=== PATIENT | female | born 1955 | race African-American/Black ===

== ENCOUNTER → 2017-02-10 | Outpatient (CLI) | payer BC | END | disposition home or self-care (01) | LOC: LAB 08:27 | PROVIDERS: ATTEND General Practice | DX: I10 Essential (primary) hypertension (principal); E11.9 Type 2 diabetes mellitus without complications ==

== ENCOUNTER → 2017-03-31 | Outpatient (CLI) | payer BC | END | disposition home or self-care (01) | LOC: LAB.O 08:29 | PROVIDERS: ATTEND Student in an Organized Health Care Education/Training Program | DX: N18.3 Chronic kidney disease, stage 3 (moderate) (principal); E55.9 Vitamin D deficiency, unspecified; N25.81 Secondary hyperparathyroidism of renal origin; D63.1 Anemia in chronic kidney disease ==

== ENCOUNTER → 2017-04-06 | Outpatient (CLI) | payer BC ==
--- NOTE | 2017-04-06 15:08 | RAD ---
EXAM DESCRIPTION: Chest,2 Views CLINICAL HISTORY: SURGICAL CLEARANCE COMPARISON: February 16, 2016 TECHNIQUE: PA/lateral FINDINGS: The lungs are well expanded and clear. No infiltrates or effusions or masses are noted. The heart is normal in size and shape with no evidence of vascular congestion. Aortic arch and descending aorta is moderately tortuous. The patricia and mediastinum demonstrate normal contours. The bony spine and chest wall is normal for age in appearance. IMPRESSION: Normal chest, two views Electronically signed by: Braulio Carlin MD 04/06/2017 3:06 PM CDT
== END | disposition home or self-care (01) ==
LOC: RESP 14:08
PROVIDERS: ATTEND Orthopaedic Surgery
DX: Z01.818 Encounter for other preprocedural examination (principal)

== ENCOUNTER 2018-11-25 19:42 | Emergency (ER) | payer BC, MEDICARE ==
[2018-11-25] MEDS ORDERED: MORPHINE SULFATE INJ 10 MG/ML VIAL IV ONE (20:18)
[2018-11-25] MEDS ORDERED: ONDANSETRON INJ 4 MG/2 ML VIAL IV ONE (20:18)
--- NOTE | 2018-11-25 20:21 | ED.PDOC ---
History of Present Illness - General Chief Complaint: GI Problem Stated Complaint: back pain, vomiting Time Seen by Provider: 11/25/18 20:17 Source: patient, family Exam Limitations: no limitations - History of Present Illness Initial Comments: Patient presents with N/V since last night. She has had associated generalized abdominal pain since it started. Denies diarrhea. No similarly sick contacts. She had back surgery in 2014 and 2017 to "straighten it". She says that her back has been hurting worse recently, especially with the vomiting. She is not sure if she has had a fever. No other complaints. Timing/Duration: 24 hours Severity: mild Improving Factors: nothing Worsening Factors: nothing Associated Symptoms: other - as in HPI Allergies/Adverse Reactions: Allergies Flu Virus Vaccine Allergy (Verified 11/25/18 20:04) Penicillins Allergy (Verified 11/25/18 20:04) Tetracycline [From Achromycin V] Allergy (Verified 05/07/16 09:44) Unknown Home Medications: Ambulatory Orders Carvedilol 18.75 mg PO BID 03/05/16 Acetaminophen W/ Codeine [Tylenol W/ CODEINE #3] 1 ea PO Q6HRS PRN #20 11/25/18 Amlodipine Besylate 5 mg PO DAILY 11/25/18 Aspirin [Aspirin Adult Low Dose] 81 mg PO DAILY 11/25/18 Furosemide [Lasix] 20 mg PO DAILY 11/25/18 Lisinopril 40 mg PO DAILY 11/25/18 Ondansetron [Zofran Odt] 4 mg PO Q6HRS PRN 11/25/18 Promethazine Tab [Phenergan Tablet] 25 mg PO .Q4H PRN #10 tab 11/25/18 Spironolactone [Aldactone] 25 mg PO DAILY 11/25/18 Review of Systems - Review of Systems Constitutional: States: no symptoms reported EENTM: States: no symptoms reported Respiratory: States: no symptoms reported Gastrointestinal/Abdominal: States: see HPI Genitourinary: States: no symptoms reported Musculoskeletal: States: no symptoms reported Skin: States: no symptoms reported Neurological: States: no symptoms reported Endocrine: States: no symptoms reported Hematologic/Lymphatic: States: no symptoms reported Past Medical History (General) - Patient Medical History Hx Seizures: No Hx Stroke: No Hx Dementia: No Hx Asthma: No Hx of COPD: No Hx Cardiac Disorders: No Hx Congestive Heart Failure: Yes Hx Pacemaker: No Hx Hypertension: Yes Hx Thyroid Disease: No Hx Diabetes: No Hx Gastroesophageal Reflux: No Hx Renal Disease: No Hx Cancer: No Hx of HIV: No Hx Hepatitis C: No Hx MRSA: No Surgical History: cholecystectomy, Hysterectomy - Vaccination History Hx Tetanus, Diphtheria Vaccination: No Hx Influenza Vaccination: No Hx Pneumococcal Vaccination: No - Social History Hx Tobacco Use: Yes Hx Alcohol Use: No Hx Substance Use: No Hx Substance Use Treatment: No Hx Depression: No - Female History Patient is a Female of Child Bearing Age (10 -59 yrs old): No Patient : No Family Medical History - Family History Mother Family History: No Known Living Status: Physical Exam - Physical Exam General Appearance: Alert Respiratory: lungs clear, normal breath sounds Cardiovascular/Chest: regular rate, rhythm Gastrointestinal/Abdominal: normal bowel sounds, non tender, soft Back Exam: normal inspection, no CVA tenderness Neurologic: no motor/sensory deficits, alert, normal mood/affect, oriented x 3 Skin Exam: normal color Lymphatic: no adenopathy Progress - Progress Progress: 11/25/18 22:25 Laboratory Tests 11/25/18 11/25/18 11/25/18 20:40 20:40 21:15 WBC 9.2 RBC 4.37 Hgb 13.0 Hct 38.2 MCV 87.4 MCH 29.7 MCHC 34.0 RDW 14.2 Plt Count 268 MPV 8.0 Absolute Neuts (auto) 8.20 H Absolute Lymphs (auto) 0.60 L Absolute Monos (auto) 0.30 Absolute Eos (auto) 0.20 Absolute Basos (auto) 0.00 Neutrophils % 88.7 H Lymphocytes % 6.2 L Monocytes % 2.9 Eosinophils % 1.8 Basophils % 0.4 Sodium 140 Potassium 3.8 Chloride 106 Carbon Dioxide 23 Anion Gap 14.8 BUN 19 H Creatinine 1.06 BUN/Creatinine Ratio 17.9 Random Glucose 172 H Serum Osmolality 285.7 Calcium 9.7 Total Bilirubin 0.6 AST 21 ALT 13 Alkaline Phosphatase 79 B-Natriuretic Peptide 497.0 H* Serum Total Protein 8.6 H Albumin 4.3 Globulin 4.3 H Albumin/Globulin Ratio 1.0 L Lipase 108 H Urine Color Yellow Urine Appearance Clear Urine pH 5.5 Ur Specific [place] >= 1.030 Urine Protein >=300 H Urine Glucose (UA) Negative Urine Ketones Trace Urine Blood Moderate H Urine Nitrite Negative Urine Bilirubin Negative Urine Urobilinogen 0.2 Ur Leukocyte Esterase Negative Urine RBC 0 Urine WBC 1-3 Ur Epithelial Cells 1-3 Urine Bacteria 1+ Patient's nausea resolved with zofran 4 mg IV x one and her back pain resolved with morphine 4 mg IV x one. There was no indication for a CT at this time. There was hematuria and the patient and daughter were asked to have her follow up in one to two weeks with their pcp to recheck the urine since the most common hematuria is transient. Patient was given RX for phenergan and Tylenol #3. Care instructions given. E.R. warnings given. Questions were elicited and ans wered. Patient voiced understanding and agreement with the plan. Departure - Departure Clinical Impression: Nausea & vomiting Disposition: Discharge to Home or Self Care Condition: Good Departure Forms: ED Discharge - Pt. Copy, Patient Portal Self Enrollment Instructions: Nausea and Vomiting, Adult (DC) Diet: other - increase oral fluids Activity: increase activity as tolerated Referrals: Joey Payne MD [Primary Care Provider] - 1-2 Weeks Prescriptions: Acetaminophen W/ Codeine [Tylenol W/ CODEINE #3] 1 ea PO Q6HRS PRN #20 PRN Reason: Pain Promethazine Tab [Phenergan Tablet] 25 mg PO .Q4H PRN #10 tab PRN Reason: Nausea/Vomiting Home Medications: Ambulatory Orders Carvedilol 18.75 mg PO BID 03/05/16 Acetaminophen W/ Codeine [Tylenol W/ CODEINE #3] 1 ea PO Q6HRS PRN #20 11/25/18 Amlodipine Besylate 5 mg PO DAILY 11/25/18 Aspirin [Aspirin Adult Low Dose] 81 mg PO DAILY 11/25/18 Furosemide [Lasix] 20 mg PO DAILY 11/25/18 Lisinopril 40 mg PO DAILY 11/25/18 Ondansetron [Zofran Odt] 4 mg PO Q6HRS PRN 11/25/18 Promethazine Tab [Phenergan Tablet] 25 mg PO .Q4H PRN #10 tab 11/25/18 Spironolactone [Aldactone] 25 mg PO DAILY 11/25/18 Additional Instructions: Return to the E.R. or to your regular doctor if the nausea and vomiting continues for more than 48 hours without the development of diarrhea. Return for increasing abdominal pain. You had blood in your urine today. See your regular doctor in 1-2 weeks to have this checked again. Return to the E.R. immediately for temperature greater than 100.4.
[2018-11-25] MEDS ORDERED: SODIUM CHLORIDE 0.9% 250ML 250 ML IVS ONE (21:29)
[2018-11-25 22:48] VITALS: BP 148/73; TEMP 98; O2SAT 95
== END 2018-11-25 22:45 | disposition home or self-care (01) ==
LOC: ER 19:42
DX: R11.2 Nausea with vomiting, unspecified (principal); I50.9 Heart failure, unspecified; I11.0 Hypertensive heart disease with heart failure; Z87.891 Personal history of nicotine dependence; Z79.82 Long term (current) use of aspirin; Z79.899 Other long term (current) drug therapy; Z88.7 Allergy status to serum and vaccine; Z88.0 Allergy status to penicillin; Z88.3 Allergy status to other anti-infective agents
CPT/HCPCS: 36415; 80053; 81001; 83690; 83880; 85025; J2270; J2405; J7050

== ENCOUNTER → 2019-10-23 | Outpatient (CLI) | payer MEDICARE ==
--- NOTE | 2019-10-24 20:53 | MAM ---
EXAM DESCRIPTION: 3D Screening BILATERAL : Digital Mammography. CLINICAL HISTORY: 64 years Female SCREEN . No complaints. No personal or family history of breast cancer. Menarche age 13. Childbirth age 25. Postmenopausal unknown age. No HRT. Lifetime risk of developing breast cancer (Tyrer-Cuzick model)(%): 6.5. COMPARISON: 2-D digital screening bilateral mammography 18 October 2016.. TECHNIQUE: Bilateral CC and MLO projection full-field images, digital tomosynthesis mammographic technique. Bilateral digital 2-D full-field MLO images. CAD not available for tomosynthesis or 2-D images. FINDINGS: The breast parenchymal density pattern is: Almost entirely fatty. No skin thickening or nipple retraction. Bilateral microcalcifications and coarse calcifications. Bilateral skin calcifications. Calcifications have increased since the prior study. No new focal, stellate mass or density, focal asymmetry , and no suspicious microcalcifications bilaterally. Stable mammograms compared to prior study. Taking into account, differences in mammographic technique. IMPRESSION: Benign exam. BIRAD CATEGORY: 2 BENIGN FINDINGS. RECOMMENDATIONS: FOLLOW UP: Routine digital bilateral mammographic screening, one year interval from October 2019. Written communication explaining the IMPRESSION and follow-up, will be mailed to the patient and referring health care provider. According to the [employer], yearly mammograms are recommended starting at age 40 and continuing as long as a woman is in good health. Any breast change noted on a breast self-exam should be reported promptly to the patient's healthcare provider. Breast MRI is recommended for women with an approximately 20-25% or greater lifetime risk of breast cancer, including women with a strong family history of breast or ovarian cancer and women who have been treated for Hodgkin's disease. A negative mammographic report should not delay tissue diagnosis in patients with significant clinical history or physical findings. Extremely dense breast tissue limits the sensitivity of digital mammography. Electronically signed by: Brandyn Rios MD 10/24/2019 8:51 PM [employer]
== END ==
LOC: MAMMO 13:00
PROVIDERS: ATTEND General Practice
DX: Z12.31 Encounter for screening mammogram for malignant neoplasm of breast (principal)